=== PATIENT | female | born 1935 | race Caucasian/White ===

== ENCOUNTER 2021-04-23 03:53 | Inpatient (IN) | payer MEDICARE, MEDICAID ==
[~2021-04-23] VITALS: Ht 152.4 cm; Wt 66.4 kg
[~2021-04-23 03:53] MED LIST: AMIO200T61 PO; APIX2.5T PO; ASPI-1265 PO; CITA20TA28 PO; FURO40TA4 PO; HYDR200T84 PO; METH2.5T PO; METO1TAB25 PO; NITR1PAT63 TD; POTA10CA44 PO; SIMV-42 PO
[2021-04-23 04:14] LABS: BASOPHILS % (AUTO) 0.7 % (0-1); EOSINOPHILS # (AUTO) 0.2 X10'3 (0-0.9); EOSINOPHILS % (AUTO) 5.1 % (0-6); HEMATOCRIT 36.5 % (35.0-45.0); HEMOGLOBIN 12.1 g/dl (12.0-16.0); LYMPHOCYTES # (AUTO) 0.4 X10'3 (1.1-4.8); LYMPHOCYTES % (AUTO) 9.9 % (21-51); MEAN CORPUSCULAR HGB CONC 33.1 g/dL (33.0-36.5); MEAN CORPUSCULAR VOLUME 99.6 FL (78-98); MEAN PLATELET VOLUME 7.3 FL (7.4-10.4); MONOCYTES # (AUTO) 0.4 X10'3 (0-0.9); MONOCYTES % (AUTO) 8.4 % (2-12); NEUTROPHILS # (AUTO) 3.4 X10'3 (1.8-7.7); NEUTROPHILS % (AUTO) 75.9 % (42-75); PLATELET COUNT 298 X10'3 (140-440); RED BLOOD COUNT 3.66 X10'6 (4.20-5.60); RED CELL DISTRIBUTION WIDTH 14.5 % (11.5-14.5); WHITE BLOOD COUNT 4.4 X10'3 (4.5-11.0)
[2021-04-23 04:26] LABS: ALANINE AMINOTRANSFERASE 22 U/L (12-78); ALBUMIN 3.1 G/DL (3.4-5.0); ALBUMIN/GLOBULIN RATIO 0.8 (1.1-1.5); ALKALINE PHOSPHATASE 104 IU/L (46-116); ANION GAP 7 (8-16); ASPARTATE AMINO TRANSFERASE 33 U/L (10-37); BILIRUBIN,TOTAL 0.5 MG/DL (0.1-1.0); BLOOD UREA NITROGEN 26 MG/DL (7-18); BUN/CREATININE RATIO 19.1 (6.6-38.0); CHLORIDE 102 MMOL/L (99-107); CREATININE 1.36 MG/DL (0.40-0.90); GLUCOSE 122 MG/DL (70-104); POTASSIUM 4.3 MMOL/L (3.5-5.1); SODIUM 135 MMOL/L (135-145); TOTAL CARBON DIOXIDE 25.7 MMOL/L (24-32); eGFR 37 ML/MIN
--- NOTE | 2021-04-23 06:27 | NUR ---
Introduced self to pt. Pt alert, oriented, no needs or distress at this time. No chest pain or associated complaints. Updated on wait.
--- NOTE | 2021-04-23 07:28 | NUR ---
Pt desats to 80s when sleeping. Awakens to alarms and sats come back up to 98.
--- NOTE | 2021-04-23 07:51 | NUR ---
2nd Troponin back. Awaiting futher MD orders. No apparent distress or needs at this time.
[2021-04-23] MEDS ORDERED: magnesium Cl slow-release 64mg tablet PO PRN (08:20)
[2021-04-23] MEDS ORDERED: morphine 2 MG/ML inj. syringe IV PRN (08:20)
[2021-04-23] MEDS ORDERED: potassium Cl 20 mEq SR tablet PO PRN ×2 (08:20)
[2021-04-23] MEDS ORDERED: magnesium 4gm in 100ml NS 100 ML IV PRN (08:20)
[2021-04-23] MEDS ORDERED: PERFLUTREN PROTEIN-A MICROSPHR (Optison) 0.22 MG/ML 3ML VIAL IV ONE (08:20)
[2021-04-23] MEDS ORDERED: potassium CL 10mEq/100ml bag 100 ML IV PRN (08:20)
[2021-04-23] MEDS ORDERED: acetaminophen 325mg tablet PO PRN (08:20)
[2021-04-23] MEDS ORDERED: magnesium 2GM in 50ml NS 50 ML IV PRN (08:20)
--- NOTE | 2021-04-23 08:39 | NUR ---
Pt to be admitted. Ordered food tray
--- NOTE | 2021-04-23 09:27 | NUR ---
Heart healthy diet ordered for pt and delivered to bedside. No needs at this time.
--- NOTE | 2021-04-23 10:04 | NUR ---
Pt finished with breakfast, updated on admission, awaiting a bed. Meds reviewed and charted.
--- NOTE | 2021-04-23 10:25 | NUR ---
Pt states she takes Coreg, unknown dose, just started in the last few days instead of Metoprolol.
[2021-04-23 10:58] LABS: MAGNESIUM 2.2 MG/DL (1.5-2.4); POTASSIUM 4.6 MMOL/L (3.5-5.1)
[2021-04-23 11:00] VITALS: BP 149/70
[2021-04-23] MEDS ORDERED: nitroGLYCERIN 0.4mg SUBLingual tab SL PRN (12:20)
[2021-04-23] MEDS ORDERED: metoprolol tartrate 1mg/ml inj IV PRN (12:20)
[2021-04-23] MEDS ORDERED: aminophylline 500mg/20ml vial IV PRN (12:20)
[2021-04-23] MEDS ORDERED: regadenoson 0.4mg/5ml syringe IV PRN (12:20)
[2021-04-23] MEDS ORDERED: VITA1TAB20 PO (13:17)
[2021-04-23] MEDS ORDERED: FOLI1TAB27 PO (13:17)
[2021-04-23] MEDS ORDERED: CARV3.122 PO (13:17)
[2021-04-23] MEDS ORDERED: FURO-150 PO (13:17)
[2021-04-23] MEDS ORDERED: CHOL10006 PO (13:17)
[2021-04-23] MEDS ORDERED: BENZ-49 PO (13:17)
[2021-04-23] MEDS ORDERED: UMEC1DIS INH (13:17)
[2021-04-23] MEDS ORDERED: ACET325T55 PO (13:32)
[2021-04-23] MEDS ORDERED: benzonatate 100mg capsule PO PRN (13:45)
[2021-04-23] MEDS ORDERED: PERFLUTREN PROTEIN-A MICROSPHR (Optison) 0.22 MG/ML 3ML VIAL IV PRN (13:50)
[2021-04-23 15:35] VITALS: BP 135/73
[2021-04-23 18:00] VITALS: BP 159/66
[2021-04-23] MEDS: apixaban 2.5mg tablet PO SCH (19:50)
[2021-04-23] MEDS: furosemide 20MG tablet PO SCH (19:50)
[2021-04-23] MEDS: carVEDilol 3.125mg tablet PO SCH (19:50)
[2021-04-23] MEDS: docusate sod 100mg capsule PO SCH (19:50)
[2021-04-23] MEDS: K and/or MAG REPLACEMENT MC SCH (20:00)
[2021-04-23] MEDS: CITALOpram 10mg tablet PO SCH (20:00)
[2021-04-23] MEDS: budesonide 0.5mg/2ml UD nebule IH SCH (20:43)
[2021-04-23 22:00] VITALS: BP 133/64
--- NOTE | 2021-04-23 23:49 | NUR ---
Selene Carlin has a troponin level of [address] Alvarez; no further order given.
[2021-04-24] VITALS (12 sets, daily range): BP systolic 99–150; BP diastolic 39–72
[2021-04-24 05:25] LABS: ANION GAP 7 (8-16); BLOOD UREA NITROGEN 31 MG/DL (7-18); BUN/CREATININE RATIO 23.7 (6.6-38.0); CALCIUM 9.2 MG/DL (8.5-10.1); CHLORIDE 103 MMOL/L (99-107); CREATININE 1.31 MG/DL (0.40-0.90); GLUCOSE 102 MG/DL (70-104); MAGNESIUM 2.2 MG/DL (1.5-2.4); POTASSIUM 4.5 MMOL/L (3.5-5.1); SODIUM 137 MMOL/L (135-145); TOTAL CARBON DIOXIDE 27.2 MMOL/L (24-32); eGFR 38 ML/MIN
--- NOTE | 2021-04-24 05:33 | NUR ---
Pt La Nena Morton in room 3013 A on PCU has a troponin level of 100. It was [address] Alvarez notified. No further order given.
[2021-04-24] MEDS: K and/or MAG REPLACEMENT MC SCH ×2 (08:00→19:24)
[2021-04-24] MEDS: docusate sod 100mg capsule PO SCH (08:00)
[2021-04-24] MEDS: budesonide 0.5mg/2ml UD nebule IH SCH ×2 (09:30→20:22)
[2021-04-24 12:13] LABS: BASOPHILS % (AUTO) 0.3 % (0-1); EOSINOPHILS # (AUTO) 0.1 X10'3 (0-0.9); EOSINOPHILS % (AUTO) 1.8 % (0-6); HEMATOCRIT 42.8 % (35.0-45.0); HEMOGLOBIN 14.1 g/dl (12.0-16.0); LYMPHOCYTES # (AUTO) 0.3 X10'3 (1.1-4.8); LYMPHOCYTES % (AUTO) 5.3 % (21-51); MEAN CORPUSCULAR HEMOGLOBIN 33.5 PG (27.0-31.0); MEAN CORPUSCULAR VOLUME 101.5 FL (78-98); MEAN PLATELET VOLUME 7.6 FL (7.4-10.4); MONOCYTES # (AUTO) 0.4 X10'3 (0-0.9); MONOCYTES % (AUTO) 7.2 % (2-12); NEUTROPHILS # (AUTO) 5.2 X10'3 (1.8-7.7); NEUTROPHILS % (AUTO) 85.4 % (42-75); PLATELET COUNT 319 X10'3 (140-440); RED BLOOD COUNT 4.22 X10'6 (4.20-5.60); RED CELL DISTRIBUTION WIDTH 14.6 % (11.5-14.5); WHITE BLOOD COUNT 6.1 X10'3 (4.5-11.0)
[2021-04-24] MEDS: potassium Cl 20 mEq SR tablet PO SCH (12:41)
[2021-04-24] MEDS: carVEDilol 3.125mg tablet PO SCH ×2 (12:42→20:11)
[2021-04-24] MEDS: furosemide 20MG tablet PO SCH (12:42)
[2021-04-24] MEDS: apixaban 2.5mg tablet PO SCH (12:42)
[2021-04-24] MEDS: aspirin 81mg tab.chew PO SCH (12:42)
[2021-04-24] MEDS: nitroGLYCERIN 0.2mg/hour patch TD SCH (12:43)
[2021-04-24 19:38] LABS: APTT 29 SECONDS (22-32)
[2021-04-24] MEDS: acetylcysteine 200 MG/ml 4ml vial PO SCH (20:00)
[2021-04-24] MEDS ORDERED: guaiFENesin ER 600mg tablet PO SCH (20:00)
[2021-04-24] MEDS: furosemide 20 MG/2 ML vial IV SCH (20:11)
[2021-04-24] MEDS: CITALOpram 10mg tablet PO SCH (20:11)
[2021-04-25] VITALS (7 sets, daily range): BP systolic 111–170; BP diastolic 54–80
--- NOTE | 2021-04-25 01:15 | NUR ---
Pt is in bed complaining of mid sternal pressure 5/10, pt placed on oxygen saturating well. Vitals stable and EKG done but unchanged from AM EKG. Pt refused pain medication. Dr Alvarez notified and no further order given. Continue to assess and monitor pt for recurrent chest pain.
--- NOTE | 2021-04-25 06:00 | NUR ---
Pt in bed asleep; arousal to stimuli. Pt denied chest pain or any discomfort.
[2021-04-25 06:59] LABS: BASOPHILS % (AUTO) 0.6 % (0-1); EOSINOPHILS # (AUTO) 0.2 X10'3 (0-0.9); EOSINOPHILS % (AUTO) 3.7 % (0-6); HEMATOCRIT 42.5 % (35.0-45.0); HEMOGLOBIN 13.7 g/dl (12.0-16.0); LYMPHOCYTES # (AUTO) 0.4 X10'3 (1.1-4.8); LYMPHOCYTES % (AUTO) 8.5 % (21-51); MEAN CORPUSCULAR HEMOGLOBIN 32.9 PG (27.0-31.0); MEAN CORPUSCULAR HGB CONC 32.2 g/dL (33.0-36.5); MEAN CORPUSCULAR VOLUME 102.1 FL (78-98); MONOCYTES # (AUTO) 0.5 X10'3 (0-0.9); MONOCYTES % (AUTO) 10.2 % (2-12); NEUTROPHILS # (AUTO) 3.7 X10'3 (1.8-7.7); PLATELET COUNT 321 X10'3 (140-440); RED BLOOD COUNT 4.16 X10'6 (4.20-5.60); RED CELL DISTRIBUTION WIDTH 14.4 % (11.5-14.5); WHITE BLOOD COUNT 4.8 X10'3 (4.5-11.0)
[2021-04-25] MEDS: budesonide 0.5mg/2ml UD nebule IH SCH ×2 (07:24→21:15)
[2021-04-25] MEDS: K and/or MAG REPLACEMENT MC SCH ×2 (08:00→20:00)
[2021-04-25 08:34] LABS: BLOOD UREA NITROGEN 30 MG/DL (7-18); BUN/CREATININE RATIO 25.4 (6.6-38.0); CALCIUM 9.7 MG/DL (8.5-10.1); CREATININE 1.18 MG/DL (0.40-0.90); GLUCOSE 105 MG/DL (70-104); MAGNESIUM 2.1 MG/DL (1.5-2.4); eGFR 43 ML/MIN
[2021-04-25] MEDS: furosemide 20 MG/2 ML vial IV SCH ×2 (09:03→20:01)
[2021-04-25] MEDS: nitroGLYCERIN 0.2mg/hour patch TD SCH (09:04)
[2021-04-25] MEDS: aspirin 81mg tab.chew PO SCH (09:04)
[2021-04-25] MEDS: carVEDilol 3.125mg tablet PO SCH ×2 (09:04→20:00)
[2021-04-25] MEDS: potassium Cl 20 mEq SR tablet PO SCH (09:04)
[2021-04-25] MEDS: acetylcysteine 200 MG/ml 4ml vial PO SCH ×2 (14:30→20:02)
[2021-04-25 14:58] LABS: POTASSIUM 4.5 MMOL/L (3.3-5.1)
[2021-04-25] MEDS: CITALOpram 10mg tablet PO SCH (20:02)
[2021-04-26] VITALS (13 sets, daily range): BP systolic 118–152; BP diastolic 51–82
[2021-04-26] MEDS: normal saline 1000ml 1,000 ML IV SCH ×2 (00:20→19:59)
--- NOTE | 2021-04-26 06:00 | NUR ---
Pt pending procedure, aware of the nothing by mouth status since last night. AM care prep done for procedure.
[2021-04-26] MEDS: budesonide 0.5mg/2ml UD nebule IH SCH ×2 (07:17→20:46)
[2021-04-26 07:18] LABS: BASOPHILS % (AUTO) 0.7 % (0-1); EOSINOPHILS # (AUTO) 0.2 X10'3 (0-0.9); EOSINOPHILS % (AUTO) 4.7 % (0-6); HEMATOCRIT 42.9 % (35.0-45.0); LYMPHOCYTES # (AUTO) 0.4 X10'3 (1.1-4.8); LYMPHOCYTES % (AUTO) 8.1 % (21-51); MEAN CORPUSCULAR HEMOGLOBIN 33.1 PG (27.0-31.0); MEAN CORPUSCULAR HGB CONC 32.7 g/dL (33.0-36.5); MEAN CORPUSCULAR VOLUME 101.3 FL (78-98); MEAN PLATELET VOLUME 7.4 FL (7.4-10.4); MONOCYTES # (AUTO) 0.6 X10'3 (0-0.9); MONOCYTES % (AUTO) 11.6 % (2-12); NEUTROPHILS # (AUTO) 3.7 X10'3 (1.8-7.7); NEUTROPHILS % (AUTO) 74.9 % (42-75); PLATELET COUNT 308 X10'3 (140-440); RED BLOOD COUNT 4.24 X10'6 (4.20-5.60); RED CELL DISTRIBUTION WIDTH 14.3 % (11.5-14.5); WHITE BLOOD COUNT 4.9 X10'3 (4.5-11.0)
[2021-04-26] MEDS ORDERED: fentaNYL/PF 50MCG/1 ML 2ML syringe ONE (07:43)
[2021-04-26] MEDS ORDERED: iohexol 350 MG/ML 50ML vial IV ONE ×2 (07:43→08:54)
[2021-04-26] MEDS ORDERED: verapamil 2.5 mg/ml inj IV ONE (07:43)
[2021-04-26] MEDS ORDERED: heparin 1,000unit/ml 10ml vial 10 ML ONE (07:43)
[2021-04-26] MEDS ORDERED: nitroGLYCERIN-Tridil 50MG/D5W 250 ML IV ONE (07:43)
[2021-04-26] MEDS ORDERED: LIDOcaine 1% (10mg/ml)w/preservative inj. 20ml MDV ONE (07:43)
[2021-04-26] MEDS ORDERED: midazolam 1 mg/ML 2ml injection ONE (07:43)
[2021-04-26] MEDS ORDERED: iohexol 350MG/ML 100ml bottle IV ONE (07:43)
[2021-04-26] MEDS: acetylcysteine 200 MG/ml 4ml vial PO SCH ×2 (07:44→20:32)
[2021-04-26] MEDS: nitroGLYCERIN 0.2mg/hour patch TD SCH (07:44)
[2021-04-26] MEDS: carVEDilol 3.125mg tablet PO SCH ×2 (07:44→20:34)
[2021-04-26] MEDS: aspirin 81mg tab.chew PO SCH (07:44)
[2021-04-26 07:52] LABS: ALBUMIN 2.9 G/DL (3.4-5.0); ANION GAP 9 (8-16); BLOOD UREA NITROGEN 33 MG/DL (7-18); BUN/CREATININE RATIO 27.3 (6.6-38.0); CALCIUM 9.9 MG/DL (8.5-10.1); CHLORIDE 100 MMOL/L (99-107); CREATININE 1.21 MG/DL (0.40-0.90); GLUCOSE 110 MG/DL (70-104); MAGNESIUM 2.1 MG/DL (1.5-2.4); POTASSIUM 4.3 MMOL/L (3.5-5.1); SODIUM 135 MMOL/L (135-145); TOTAL CARBON DIOXIDE 25.6 MMOL/L (24-32); eGFR 42 ML/MIN
[2021-04-26] MEDS: K and/or MAG REPLACEMENT MC SCH ×2 (08:00→20:00)
[2021-04-26] MEDS ORDERED: furosemide 20 MG/2 ML vial IV ONE (10:55)
[2021-04-26] MEDS: potassium Cl 20 mEq SR tablet PO SCH (11:51)
--- NOTE | 2021-04-26 18:30 | NUR ---
Pt in bed awake, alert and oriented x4 conversing with her grand children. Left wrist with pressure dressing noted with no signs of bleeding. Continue to monitor site for signs of bleeding.
[2021-04-26] MEDS: CITALOpram 10mg tablet PO SCH (20:35)
[2021-04-26] MEDS: apixaban 2.5mg tablet PO SCH (20:36)
[2021-04-27 02:00] VITALS: BP 120/62
--- NOTE | 2021-04-27 05:50 | NUR ---
Doc, can you order some stool softener for pt. Selene Deutsch in room 3012 A. She is complaining that she has not have a BM since Monday.
[2021-04-27 06:00] VITALS: BP 125/66
[2021-04-27 06:44] LABS: BASOPHILS % (AUTO) 0.9 % (0-1); EOSINOPHILS # (AUTO) 0.2 X10'3 (0-0.9); EOSINOPHILS % (AUTO) 6.3 % (0-6); HEMATOCRIT 39.9 % (35.0-45.0); HEMOGLOBIN 13.1 g/dl (12.0-16.0); LYMPHOCYTES # (AUTO) 0.4 X10'3 (1.1-4.8); LYMPHOCYTES % (AUTO) 10.5 % (21-51); MEAN CORPUSCULAR HEMOGLOBIN 33.6 PG (27.0-31.0); MEAN CORPUSCULAR HGB CONC 32.9 g/dL (33.0-36.5); MEAN CORPUSCULAR VOLUME 102.2 FL (78-98); MEAN PLATELET VOLUME 7.6 FL (7.4-10.4); MONOCYTES # (AUTO) 0.6 X10'3 (0-0.9); MONOCYTES % (AUTO) 14.7 % (2-12); NEUTROPHILS # (AUTO) 2.7 X10'3 (1.8-7.7); NEUTROPHILS % (AUTO) 67.6 % (42-75); PLATELET COUNT 270 X10'3 (140-440); RED BLOOD COUNT 3.91 X10'6 (4.20-5.60); RED CELL DISTRIBUTION WIDTH 14.8 % (11.5-14.5); WHITE BLOOD COUNT 3.9 X10'3 (4.5-11.0)
[2021-04-27 06:50] LABS: ALBUMIN 2.5 G/DL (3.4-5.0); ANION GAP 1 (8-16); BLOOD UREA NITROGEN 28 MG/DL (7-18); BUN/CREATININE RATIO 22.8 (6.6-38.0); CALCIUM 9.5 MG/DL (8.5-10.1); CHLORIDE 101 MMOL/L (99-107); CREATININE 1.23 MG/DL (0.40-0.90); GLUCOSE 95 MG/DL (70-104); MAGNESIUM 1.9 MG/DL (1.5-2.4); POTASSIUM 4.4 MMOL/L (3.5-5.1); SODIUM 132 MMOL/L (135-145); TOTAL CARBON DIOXIDE 29.9 MMOL/L (24-32); eGFR 41 ML/MIN
[2021-04-27] MEDS: budesonide 0.5mg/2ml UD nebule IH SCH (07:33)
[2021-04-27] MEDS: K and/or MAG REPLACEMENT MC SCH (07:59)
[2021-04-27] MEDS ORDERED: furosemide 20 MG/2 ML vial IV SCH (08:00)
[2021-04-27] MEDS ORDERED: docusate sod 100mg capsule PO SCH (08:00)
[2021-04-27 08:10] VITALS: BP 131/80
[2021-04-27] MEDS: carVEDilol 3.125mg tablet PO SCH (08:11)
[2021-04-27] MEDS: aspirin 81mg tab.chew PO SCH (08:11)
[2021-04-27] MEDS: potassium Cl 20 mEq SR tablet PO SCH (08:13)
[2021-04-27] MEDS: apixaban 2.5mg tablet PO SCH (08:13)
[2021-04-27] MEDS: nitroGLYCERIN 0.2mg/hour patch TD SCH (08:14)
--- NOTE | 2021-04-27 10:44 | NUR ---
Student Medication Administration: For this medication-pass time frame, all medication were reviewed, dispensed, administered and documented per hospital policy by brenna Walter.
--- NOTE | 2021-04-27 10:44 | NUR ---
Student documentation: I have reviewed and agree with all interventions, assessments performed and documented by Saba, skilled nursing facilities professional.
[2021-04-27 11:00] VITALS: BP 145/58
[2021-04-27] MEDS ORDERED: ZAR2.5T PO (11:09)
== END 2021-04-27 14:20 | disposition home or self-care (01) | DRG 280 ==
LOC: ER 03:54 → ED HOLD 08:23 → PCU 3S 10:38
PROVIDERS: ADMIT Internal Medicine; ATTEND Internal Medicine
PROC: 4A02XM4 Measurement of Cardiac Total Activity, External Approach (ICD-10-PCS; 2021-04-24)
PROC: 3E033HZ Introduction of Radioactive Substance into Peripheral Vein, Percutaneous Approach (ICD-10-PCS; 2021-04-24)
PROC: 4A023N7 Measurement of Cardiac Sampling and Pressure, Left Heart, Percutaneous Approach (ICD-10-PCS; principal; 2021-04-26)
PROC: B2111ZZ Fluoroscopy of Multiple Coronary Arteries using Low Osmolar Contrast (ICD-10-PCS; 2021-04-26)
PROC: B2151ZZ Fluoroscopy of Left Heart using Low Osmolar Contrast (ICD-10-PCS; 2021-04-26)
DX: I21.4 Non-ST elevation (NSTEMI) myocardial infarction (principal); I50.33 Acute on chronic diastolic (congestive) heart failure; N17.0 Acute kidney failure with tubular necrosis; I13.0 Hypertensive heart and chronic kidney disease with heart failure and stage 1 through stage 4 chronic kidney disease, or unspecified chronic kidney disease; I25.110 Atherosclerotic heart disease of native coronary artery with unstable angina pectoris; I49.5 Sick sinus syndrome; E11.22 Type 2 diabetes mellitus with diabetic chronic kidney disease; Z77.22 Contact with and (suspected) exposure to environmental tobacco smoke (acute) (chronic); E78.5 Hyperlipidemia, unspecified; I48.0 Paroxysmal atrial fibrillation; N18.30 Chronic kidney disease, stage 3 unspecified; J44.9 Chronic obstructive pulmonary disease, unspecified; Z60.2 Problems related to living alone; F32.A Depression, unspecified; M06.9 Rheumatoid arthritis, unspecified; M19.90 Unspecified osteoarthritis, unspecified site; M81.0 Age-related osteoporosis without current pathological fracture; Z79.01 Long term (current) use of anticoagulants; I25.2 Old myocardial infarction; Z82.3 Family history of stroke; Z82.49 Family history of ischemic heart disease and other diseases of the circulatory system; Z83.3 Family history of diabetes mellitus; Z95.0 Presence of cardiac pacemaker; Z88.8 Allergy status to other drugs, medicaments and biological substances; Z79.899 Other long term (current) drug therapy; Z90.49 Acquired absence of other specified parts of digestive tract
CPT/HCPCS: 36415; 71045; 71250; 76937; 78452; 80048; 80053; 82948; 83735; 83880; 84132; 84484; 85025; 85610; 85730; 87635; 93005; 93017; 93306; 93458; 94640; 94760; 97161; 97530; 99152; 99153; 99285; A4620; A5120; A6258; A9500; C1769; C1894; G0378; J1644; J1940; J2250; J2785; J3010; J3490; J7030; Q9967

== ENCOUNTER 2022-06-29 10:26 | Outpatient (CLI) | payer MEDICARE, MEDICAID ==
[~2022-06-29 10:26] MED LIST changes: +ACET325T55 PO; -AMIO200T61 PO; +BENZ-111 PO; +CARV3.122 PO; +CHOL10006 PO; +FOLI1TAB27 PO; +FURO-150 PO; -FURO40TA4 PO; -HYDR200T84 PO; -METO1TAB25 PO; -POTA10CA44 PO; +POTA10CA45 PO; +UMEC1DIS INH; +VITA1TAB20 PO; +ZAR2.5T PO
== END 2022-06-29 23:59 | disposition home or self-care (01) ==
LOC: CARD DIAG 10:26
PROVIDERS: ATTEND Internal Medicine Cardiovascular Disease
DX: I08.3 Combined rheumatic disorders of mitral, aortic and tricuspid valves (principal)
CPT/HCPCS: 93306